=== PATIENT | female | born 1985 | race Caucasian/White ===

== ENCOUNTER 2021-11-11 13:02 | Outpatient (REF) | payer MEDICAID, SELFPAY ==
--- NOTE | 2021-11-11 08:45 | PAPFT_PTH ---
PATIENT: Deepa Rm LOC: [facility] U#:[id number] AGE/SX: 36/F ROOM: RE11/11/[address]: Jennifer Telles NP : 1985 BED: DIS: 11/11/2021 SPEC #: [id number] RECD: 11/11/21 13:06 STATUS: MALLIKA CARRERA #: [id number] PASCUAL: 11/11/21 08:[address]: Jennifer Telles NP DEPT: [facility] Cytology RECD BY: Anita Ruth Tissues: 1 - CX/ENDOCX FOR PAP SMEARS Procedures: PAP THIN PREP/[facility] Screening HPV DNA PROBE Comments: [id number]
== END 2021-11-11 13:03 | disposition home or self-care (01) ==
LOC: LBN 13:02
PROVIDERS: Visit Provider Nurse Practitioner Women's Health
DX: Z12.4 Encounter for screening for malignant neoplasm of cervix (principal); Z11.51 Encounter for screening for human papillomavirus (HPV)
CPT/HCPCS: 88142; 87624

== ENCOUNTER 2025-02-18 09:14 | Outpatient (REF) | payer BC, SELFPAY ==
--- NOTE | 2025-02-18 09:00 | PAPFT_PTH ---
PATIENT: Deepa Rm LOC: [facility] U#:[id number] AGE/SX: 40/F ROOM: RE02/18/[address]: Jennifer Telles NP : 1985 BED: DIS: 02/18/2025 SPEC #: [id number] RECD: 02/18/25 13:14 STATUS: MALLIKA REThu #: [id number] PASCUAL: 02/18/25 09:[address]: Jennifer Telles NP DEPT: [facility] Cytology RECD BY: Anita Ruth ENTERED: 02/18/25 13:14 SP TYPE: PAPFT OTHR DR: ZULEMA WASSERMAN Tissues: 1 - CX/ENDOCX FOR PAP SMEARS Procedures: PAP THIN PREP/[facility] Screening HPV DNA PROBE Comments: [id number] (HPV 16 & 18/45)
== END 2025-02-18 09:15 | disposition home or self-care (01) ==
LOC: LBN 09:14
PROVIDERS: PCP Nurse Practitioner Primary Care; Visit Provider Nurse Practitioner Women's Health
DX: Z12.4 Encounter for screening for malignant neoplasm of cervix (principal); Z11.51 Encounter for screening for human papillomavirus (HPV)
CPT/HCPCS: 88142; 87624